=== PATIENT | female | born 1955 | race Caucasian/White ===

== ENCOUNTER 2017-02-25 05:19 | Emergency (ER) | payer BC ==
[2017-02-25 06:07] LABS: BASOPHILS 0 % (0-2); EOSINOPHILS 0 % (0-7); HEMATOCRIT 34.4 % (36.0-48.0); HEMOGLOBIN 11.1 g/dL (12-16); IMMATURE GRANULOCYTES 0.2 % (0-5); LYMPHOCYTES 55.6 % (15-50); MCH 28.8 pg (26.0-34.0); MCHC 32.3 g/dL (31.0-37.0); MCV 89.1 fL (80.0-100.0); MEAN PLATELET VOLUME 9.9 fL (7.4-10.4); MONOCYTES 11.9 % (2-11); NEUTROPHILS 32.3 % (40-80); PLATELET COUNT 198 10x3/uL (130-400); RBC 3.86 10x6/uL (4.00-5.40); RDW 15.9 % (11.5-14.5); WBC 4.2 10x3/uL (4.8-10.8)
[2017-02-25 06:28] LABS: ALBUMIN 2.2 g/dL (3.4-5.0); ANION GAP 8.9 mmol/L (8-16); BILIRUBIN - TOTAL 0.3 mg/dL (0.2-1.3); CALCIUM 8.6 mg/dL (8.5-10.1); POTASSIUM - SERUM 3.9 mmol/L (3.5-5.1); PROTEIN - SERUM 6.7 g/dL (6.4-8.2)
[2017-02-25 08:00] LABS: APPEARANCE CLEAR (CLEAR); BILIRUBIN NEGATIVE (NEGATIVE); COLOR YELLOW (YELLOW); GLUCOSE NEGATIVE (NEGATIVE); KETONE NEGATIVE (NEGATIVE); LEUKOCYTE ESTERASE NEGATIVE (NEGATIVE); NITRITE NEGATIVE (NEGATIVE); PH 6.5 (5.0-6.0); PROTEIN NEGATIVE (NEGATIVE); UROBILINOGEN NORMAL (NORMAL)
== END 2017-02-25 09:05 | disposition home or self-care (01) ==
LOC: D.ER 05:19
PROVIDERS: Emergency Medicine; Family Medicine
DX: I10 Essential (primary) hypertension (principal)

== ENCOUNTER 2017-02-26 11:08 | Emergency (ER) | payer BC | END 2017-02-26 12:14 | disposition home or self-care (01) | LOC: D.ER 11:08 | DX: R11.10 Vomiting, unspecified (principal); R19.7 Diarrhea, unspecified; G25.81 Restless legs syndrome ==

== ENCOUNTER 2017-10-28 12:44 | Inpatient (IN) | payer BC ==
[~2017-10-28] VITALS: Ht 165.1 cm; Wt 94.7 kg
[2017-10-28 13:40] LABS: BASOPHILS 0.1 % (0-2); EOSINOPHILS 2.8 % (0-7); HEMATOCRIT 39.6 % (36.0-48.0); IMMATURE GRANULOCYTES 0.5 % (0-5); LYMPHOCYTES 11.2 % (15-50); MCH 29.1 pg (26.0-34.0); MCHC 32.8 g/dL (31.0-37.0); MCV 88.6 fL (80.0-100.0); MEAN PLATELET VOLUME 9.6 fL (7.4-10.4); MONOCYTES 4.5 % (2-11); NEUTROPHILS 80.9 % (40-80); PLATELET COUNT 287 10x3/uL (130-400); RBC 4.47 10x6/uL (4.00-5.40); RDW 15.1 % (11.5-14.5); WBC 14.8 10x3/uL (4.8-10.8)
[2017-10-28 13:55] LABS: ALBUMIN 2.6 g/dL (3.4-5.0); ALKALINE PHOSPHATASE 127 U/L (46-116); ALT (SGPT) 11 U/L (10-68); BILIRUBIN - TOTAL 0.82 mg/dL (0.2-1.3); CALC OSMOLALITY 281 mosm/kg (275-300); CALCIUM 8.8 mg/dL (8.5-10.1); CARBON DIOXIDE 31.3 mmol/L (21.0-32.0); CHLORIDE - SERUM 101 mmol/L (98-107); CREATININE - SERUM 1.1 mg/dL (0.6-1.3); GLUCOSE 107 mg/dL (74-106); POTASSIUM - SERUM 3.6 mmol/L (3.5-5.1); PROTEIN - SERUM 7.8 g/dL (6.4-8.2); SODIUM 142 mmol/L (136-145); UREA NITROGEN 10 mg/dL (7-18); eGFR NON AFRICAN AMERICAN 53 mL/min (90-120)
[2017-10-28 13:58] LABS: CREATINE KINASE 71 UL (21-215); TROPONIN-I < 0.017 ng/mL (0.000-0.060)
[2017-10-28 16:07] LABS: APPEARANCE CLEAR (CLEAR); BILIRUBIN NEGATIVE (NEGATIVE); COLOR YELLOW (YELLOW); GLUCOSE NEGATIVE (NEGATIVE); KETONE NEGATIVE (NEGATIVE); NITRITE NEGATIVE (NEGATIVE); PH 7.5 (5.0-6.0); PROTEIN NEGATIVE (NEGATIVE); SPECIFIC GRAVITY 1.005 (1.005-1.020); UROBILINOGEN NORMAL (NORMAL)
[2017-10-28 16:09] LABS: BACTERIA FEW /hpf (NONE SEEN); EPITHELIAL CELLS 0-5 /hpf (0-5); RED CELLS - URINE 0-5 /hpf (0-5)
[2017-10-28 21:11] VITALS: BP 148/77
[2017-10-29] VITALS (7 sets, daily range): BP systolic 114–172; BP diastolic 60–85
[2017-10-29] MEDS ORDERED: OXYCODONE HCL E20 MG PO (10:28)
[2017-10-29] MEDS ORDERED: MORPHINE IMMEDI30 M1 PO (10:29)
[2017-10-29] MEDS ORDERED: PREDNISONE10 MG PO (10:31)
[2017-10-29] MEDS ORDERED: PROAIR HFA8.5 GM INH (10:31)
[2017-10-29] MEDS ORDERED: CYCLOBENZAPRINE10 MG PO ×2 (10:32→10:37)
[2017-10-29] MEDS ORDERED: NYSTATIN ORAL SU5 ML PO (10:32)
[2017-10-29] MEDS ORDERED: IBUPROFEN800 MG PO (10:35)
[2017-10-29] MEDS ORDERED: AMBIEN10 MG PO (10:36)
[2017-10-29] MEDS ORDERED: KLONOPIN0.5 MG PO (10:36)
[2017-10-29] MEDS ORDERED: NEURONTIN 300300 MG PO (10:37)
[2017-10-29] MEDS ORDERED: ABILIFY30 MG PO (10:39)
[2017-10-29] MEDS ORDERED: ZOFRAN ODT4 MG/UDTAB PO (10:40)
[2017-10-29] MEDS ORDERED: BREO ELLIPTA 11 EACH INH (10:54)
[2017-10-30 02:44] VITALS: Ht 165.1 cm; Wt 94.7 kg
[2017-10-30 05:27] VITALS: BP 155/87
[2017-10-30 05:27] LABS: BASOPHILS 0.1 % (0-2); EOSINOPHILS 0 % (0-7); HEMATOCRIT 37.6 % (36.0-48.0); HEMOGLOBIN 12.2 g/dL (12-16); IMMATURE GRANULOCYTES 0.5 % (0-5); LYMPHOCYTES 4.9 % (15-50); MCH 28.2 pg (26.0-34.0); MCHC 32.4 g/dL (31.0-37.0); MEAN PLATELET VOLUME 9.6 fL (7.4-10.4); NEUTROPHILS 92.5 % (40-80); PLATELET COUNT 325 10x3/uL (130-400); RBC 4.32 10x6/uL (4.00-5.40); RDW 15.2 % (11.5-14.5)
[2017-10-30 05:33] LABS: WBC 19.5 10x3/uL (4.8-10.8)
[2017-10-30 05:37] LABS: ANION GAP 13.7 mmol/L (8-16); CALCIUM 8.6 mg/dL (8.5-10.1); CARBON DIOXIDE 28.9 mmol/L (21.0-32.0); CREATININE - SERUM 1.1 mg/dL (0.6-1.3); POTASSIUM - SERUM 3.6 mmol/L (3.5-5.1)
[2017-10-30] MEDS ORDERED: MIRAPEX0.5 MG PO (07:29)
[2017-10-30] MEDS ORDERED: EFFEXOR75 MG PO (07:30)
[2017-10-30 08:06] VITALS: BP 141/77
[2017-10-30 10:22] VITALS: BP 138/72
[2017-10-30 15:24] VITALS: BP 132/73
[2017-10-30 22:10] VITALS: BP 109/67
[2017-10-31 06:20] LABS: BASOPHILS 0 % (0-2); EOSINOPHILS 0 % (0-7); HEMATOCRIT 36.9 % (36.0-48.0); HEMOGLOBIN 11.7 g/dL (12-16); IMMATURE GRANULOCYTES 0.4 % (0-5); LYMPHOCYTES 5.7 % (15-50); MCH 28.3 pg (26.0-34.0); MCHC 31.7 g/dL (31.0-37.0); MEAN PLATELET VOLUME 9.4 fL (7.4-10.4); MONOCYTES 1.8 % (2-11); NEUTROPHILS 92.1 % (40-80); PLATELET COUNT 313 10x3/uL (130-400); RBC 4.14 10x6/uL (4.00-5.40); RDW 15.6 % (11.5-14.5)
[2017-10-31 06:23] LABS: MCV 89.1 fL (80.0-100.0); WBC 13.7 10x3/uL (4.8-10.8)
[2017-10-31 06:31] LABS: ANION GAP 13.1 mmol/L (8-16); CALCIUM 8.2 mg/dL (8.5-10.1); CARBON DIOXIDE 28.3 mmol/L (21.0-32.0); CREATININE - SERUM 1.1 mg/dL (0.6-1.3)
[2017-10-31 06:32] LABS: POTASSIUM - SERUM 4.4 mmol/L (3.5-5.1)
[2017-10-31 06:34] VITALS: BP 148/86
[2017-10-31] MEDS ORDERED: NICODERM C1 PATCH .1 TRANSDERM (10:15)
[2017-10-31] MEDS ORDERED: NYSTATIN ORAL SU5 ML PO (10:15)
[2017-10-31] MEDS ORDERED: LEVAQUIN250 MG PO (10:16)
[2017-10-31] MEDS ORDERED: STERAPRED DS 1010 MG PO (10:17)
== END 2017-10-31 15:42 | disposition home or self-care (01) | DRG 190 ==
LOC: D.ER 12:44 → D.M2 15:37 → D.EDHOLD 15:37 → D.M2 16:52
PROVIDERS: Family Medicine; Internal Medicine Nephrology
DX: J44.0 Chronic obstructive pulmonary disease with (acute) lower respiratory infection (principal); J18.9 Pneumonia, unspecified organism; F17.203 Nicotine dependence unspecified, with withdrawal; J44.1 Chronic obstructive pulmonary disease with (acute) exacerbation; G89.29 Other chronic pain; F32.9 Major depressive disorder, single episode, unspecified; F41.9 Anxiety disorder, unspecified; R51 Headache

== ENCOUNTER 2018-07-28 15:33 | Emergency (ER) | payer MEDICARE, OTHER ==
[~2018-07-28] VITALS: Ht 165.1 cm; Wt 79.5 kg
[~2018-07-28 15:33] MED LIST: ABILIFY30 MG PO; AMBIEN10 MG PO; BREO ELLIPTA 11 EACH INH; CYCLOBENZAPRINE10 MG PO; EFFEXOR75 MG PO; IBUPROFEN800 MG PO; KLONOPIN0.5 MG PO; LEVAQUIN250 MG PO; MIRAPEX0.5 MG PO; MORPHINE IMMEDI30 M1 PO; NEURONTIN 300300 MG PO; NICODERM C1 PATCH .1 TRANSDERM; NYSTATIN ORAL SU5 ML PO; OXYCODONE HCL E20 MG PO; PREDNISONE10 MG PO; PROAIR HFA8.5 GM INH; STERAPRED DS 1010 MG PO; ZOFRAN ODT4 MG/UDTAB PO
[2018-07-28 15:42] VITALS: Ht 165.1 cm; Wt 79.5 kg
[2018-07-28 17:12] VITALS: BP 149/86
== END 2018-07-28 17:13 | disposition home or self-care (01) ==
LOC: D.ER 15:33
DX: M54.16 Radiculopathy, lumbar region (principal)